=== PATIENT | female | born 1970 | race African-American/Black ===

== ENCOUNTER 2018-07-11 05:25 | Emergency (ER) | payer OTHER ==
[~2018-07-11] VITALS: Ht 167.6 cm; Wt 76.7 kg
[2018-07-11] MEDS ORDERED: IV NORMAL SALINE 1000ML BAG 1,000 ML IV ONE (05:45)
[2018-07-11] MEDS ORDERED: KETOROLAC 15 MG/ML VIAL. IV ONE (05:45)
[2018-07-11] MEDS ORDERED: ORPHENADRINE CITRATE 60 MG/2 ML VIAL. IV ONE (05:45)
[2018-07-11] MEDS ORDERED: IOHEXOL 300 MG/ML 100ML VIAL. IV ONE (06:00)
[2018-07-11] MEDS ORDERED: CONTRAST GIVEN. MC PRN (06:00)
[2018-07-11 06:07] LABS: BASO # 0.1 x10^3/uL (0.0-0.2); BASO % 1 % (0-3); EOS # 0.1 x10^3/uL (0.0-0.7); EOS % 1 % (0-3); HEMATOCRIT 38.3 % (36.0-47.0); HEMOGLOBIN 12.7 g/dL (12.0-15.5); LYMPH # 2.6 x10^3/uL (1.0-4.8); LYMPH % 35 % (24-48); MEAN CORPUSCULAR HEMOGLOBIN 29 pg (25-35); MEAN CORPUSCULAR HGB CONC 33 g/dL (31-37); MEAN CORPUSCULAR VOLUME 89 fL (79-100); MONO # 0.6 x10^3/uL (0.0-1.1); MONO % 8 % (0-9); NEUT # 4.1 x10^3uL (1.8-7.7); NEUT % 56 % (31-73); PLATELET COUNT 280 x10^3/uL (140-400); RED BLOOD COUNT 4.33 x10^6/uL (3.50-5.40); RED CELL DISTRIBUTION WIDTH 21.1 % (11.5-14.5); WHITE BLOOD COUNT 7.4 x10^3/uL (4.0-11.0)
[2018-07-11 06:13] LABS: BILIRUBIN,URINE NEGATIVE (NEG); CLARITY,URINE CLEAR; COLOR,URINE YELLOW; NITRITE,URINE NEGATIVE (NEG); PH,URINE 5.5; PROTEIN,URINE NEGATIVE (NEG-TRACE); UROBILINOGEN,URINE 0.2 mg/dL (0.2 mg/dL)
[2018-07-11 06:22] LABS: CALCIUM 8.9 mg/dL (8.5-10.1); CREATININE 0.6 mg/dL (0.6-1.0); GFR 107.6; POTASSIUM 3.8 mmol/L (3.5-5.1)
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
[2018-07-11 06:29] LABS: ALBUMIN 3.5 g/dL (3.4-5.0); ALBUMIN/GLOBULIN RATIO 0.6 (1.0-1.7); MAGNESIUM 2.1 mg/dL (1.8-2.4); TOTAL BILIRUBIN 0.5 mg/dL (0.2-1.0); TOTAL PROTEIN 9.4 g/dL (6.4-8.2)
[2018-07-11 06:30] LABS: BACTERIA,URINE 0 /HPF (0-FEW); RBC,URINE 0 /HPF (0-2); SQUAMOUS EPITHELIAL CELL,UR FEW /LPF; WBC,URINE 0 /HPF (0-4)
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
[2018-07-11 07:24] VITALS: BP 116/62
== END 2018-07-11 07:41 | disposition home or self-care (01) ==
LOC: ER 05:25
DX: R07.89 Other chest pain (principal); R10.10 Upper abdominal pain, unspecified; K76.0 Fatty (change of) liver, not elsewhere classified; V40.6XXA Car passenger injured in collision with pedestrian or animal in traffic accident, initial encounter; Y93.89 Activity, other specified; Y92.410 Unspecified street and highway as the place of occurrence of the external cause; Y99.8 Other external cause status
CPT/HCPCS: 36415; 70450; 71260; 72125; 74177; 80053; 81001; 81025; 83735; 85025; 96374; 96375; 99285; J1885; J2360; J7030; Q9967